=== PATIENT | male | born 1950 | race Caucasian/White ===

== ENCOUNTER 2018-01-18 16:03 | Emergency (ER) | payer MEDICARE ==
[~2018-01-18] VITALS: Ht 193 cm; Wt 80.0 kg
[~2018-01-18 16:03] MED LIST: ASPI-650 PO; CEPH-368 PO; CITA40TA5 PO; LAMO100T PO; OXYC20TA2 PO; TRAZ-136 PO
[2018-01-18 16:22] LABS: BASOPHILS # (AUTO) 0.02 x10^3/uL (0-0.1); BASOPHILS % (AUTO) 0 % (0-1); EOSINOPHILS # (AUTO) 0.05 x10^3/uL (0-0.4); EOSINOPHILS % (AUTO) 1 % (1-7); LYMPHOCYTES # (AUTO) 0.88 x10^3/uL (1-3.4); LYMPHOCYTES % (AUTO) 11 % (22-44); MD NO; MEAN CORPUSCULAR HEMOGLOBIN 33.6 pg (27.5-34.5); MEAN CORPUSCULAR HGB CONC 34.1 g/dL (33.2-36.2); MEAN CORPUSCULAR VOLUME 98.5 fL (81-97); MEAN PLATELET VOLUME 6.4 fL (7.4-10.4); MONOCYTES # (AUTO) 0.54 x10^3/uL (0.2-0.8); MONOCYTES % (AUTO) 7 % (2-9); NEUTROPHILS # (AUTO) 6.52 x10^3/uL (1.8-6.8); NEUTROPHILS % (AUTO) 81 % (42-75); PLATELET COUNT 328 x10^3/uL (130-400); RED BLOOD COUNT 4.17 x10^6/uL (4.38-5.82); RED CELL DISTRIBUTION WIDTH 16.9 % (9.4-14.8)
[2018-01-18] MEDS ORDERED: SODIUM CHLORIDE 0.9% 1,000ML IVBOLUS ONE (16:30)
[2018-01-18] MEDS ORDERED: SODIUM CHLORIDE FLUSH 10ML SYR IVF ONE (16:30)
[2018-01-18 16:33] LABS: INTERNATIONAL NORMALIZED RATIO 1.01 (0.93-1.1); PROTHROMBIN TIME 10.5 Seconds (9.6-11.5)
[2018-01-18 16:34] LABS: ALANINE AMINOTRANSFERASE 19 U/L (12-78); ALBUMIN 3.9 g/dL (3.4-5.0); ANION GAP 13 mmol/L (5-15); CALCIUM 9.8 mg/dL (8.5-10.1); CHLORIDE 104 mmol/L (98-107)
[2018-01-18 16:37] LABS: ALKALINE PHOSPHATASE 106 U/L (45-117); BILIRUBIN,TOTAL 0.7 mg/dL (0.2-1.0); CREATININE 1.88 mg/dL (0.7-1.3); TOTAL PROTEIN 8.1 g/dL (6.4-8.2)
[2018-01-18] MEDS ORDERED: HYDROmorphone 2 MG/ML, 1ML IVPush ONE (17:30)
[2018-01-18] MEDS ORDERED: ONDANSETRON ODT 4 MG PO ONE (17:30)
[2018-01-18] MEDS ORDERED: ONDANSETRON ODT 4 MG ONE (17:35)
[2018-01-18] MEDS ORDERED: HYDROmorphone 2 MG/ML, 1ML ONE (17:36)
[2018-01-18 17:41] VITALS: BP 132/76
== END 2018-01-18 17:59 | disposition home or self-care (01) ==
LOC: ED 17:53
DX: G89.11 Acute pain due to trauma (principal); M25.551 Pain in right hip; R11.10 Vomiting, unspecified; W18.39XA Other fall on same level, initial encounter; Y93.89 Activity, other specified; R79.1 Abnormal coagulation profile; Y92.098 Other place in other non-institutional residence as the place of occurrence of the external cause; Y99.8 Other external cause status; Z79.899 Other long term (current) drug therapy
CPT/HCPCS: 36415; 70450; 73502; 80053; 80307; 85025; 85610; 85730; 93005; 96361; 96374; 99285; J1170; J7030; Q0162